=== PATIENT | male | born 1985 | race African-American/Black ===

== ENCOUNTER 2019-07-21 08:02 | Emergency (ER) | payer SELFPAY ==
[~2019-07-21] VITALS: Ht 172.7 cm; Wt 78.0 kg
[2019-07-21] MEDS ORDERED: ROCURONIUM BROMIDE 50 MG/5 ML IV ONE (08:08)
[2019-07-21] MEDS ORDERED: ETOMIDATE 2 MG/ML VIAL IV ONE ×2 (08:08→10:00)
--- NOTE | 2019-07-21 08:15 | NUR ---
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 PATIENT C/O HEADACHE, NOTED DIAPHORETIC, NOTED W VOMITING. AWAITING MD DIGGS. SEIZURE PRECAUTION APPLIED.
--- NOTE | 2019-07-21 08:20 | NUR ---
DR ZHENG AT BEDSIDE
--- NOTE | 2019-07-21 08:20 | NUR ---
PATIENT AOX 3, NOTED W L SIDED WEAKNESS. DR ZHENG AWARE
[2019-07-21] MEDS ORDERED: ONDANSETRON HCL/PF 4 MG/2 ML VIAL ONE ×2 (08:30→09:29)
[2019-07-21] MEDS ORDERED: LEVETIRACETAM (500MG) 500 MG in IV NS 0.9% 100 ML IV ONE ×2 (08:30→09:38)
[2019-07-21] MEDS ORDERED: ONDANSETRON HCL/PF 4 MG/2 ML VIAL IVP ONE (08:30)
[2019-07-21] MEDS ORDERED: IV NS 0.9% 1,000 ML BAG IV ONE ×2 (08:30→09:00)
[2019-07-21 08:44] LABS: BASOPHILS % (AUTO) 0.3 % (0.0-2.0); HEMATOCRIT 44 % (39-51); HEMOGLOBIN 14.6 g/dL (13.5-17.5); LYMPHOCYTES # (AUTO) 4.5 /CMM (0.8-4.8); LYMPHOCYTES % (AUTO) 45.2 % (20.0-44.0); MEAN CORPUSCULAR HGB CONC 34 g/dl (31.0-36.0); MEAN CORPUSCULAR VOLUME 84 fL (80-96); MONOCYTES # (AUTO) 1.1 /CMM (0.1-1.30); MONOCYTES % (AUTO) 11.4 % (2.0-12.0); NEUTROPHILS # (AUTO) 4.2 /CMM (1.8-8.9); NEUTROPHILS % (AUTO) 42.1 % (43.0-81.0); PLATELET COUNT (AUTO) 242 /CMM (150-450); RED BLOOD CELL COUNT(AUTO) 5.16 MIL/uL (4.5-6.0)
[2019-07-21 08:48] LABS: PHENYTOIN (DILANTIN) 4.2 ug/ml (10.0-20.0)
--- NOTE | 2019-07-21 08:48 | NUR ---
CONTINUOUS IMPROVEMENT FACILITATOR AT BEDSIDE
[2019-07-21 08:49] LABS: ALANINE AMINOTRANSFERASE 60 U/L (12-78); ALBUMIN 3.8 g/dL (3.4-5.0); ALCOHOL, BLOOD < 3 mg/dL (0-0); ALKALINE PHOSPHATASE 101 U/L (46-116); ASPARTATE AMINOTRANSFERASE 39 U/L (15-37); BILIRUBIN,DIRECT 0.1 mg/dL (0.0-0.2); BILIRUBIN,TOTAL 0.3 mg/dL (0.2-1.0); CALCIUM, SERUM 8.9 mg/dL (8.5-10.1); CARBON DIOXIDE 23 mmol/L (21-32); CHLORIDE 105 mmol/L (98-107); GLUCOSE 202 mg/dL (74-106); POTASSIUM 3.1 mmol/L (3.5-5.1); SODIUM SERUM 141 mmol/L (136-145); TOTAL PROTEIN, SERUM 7.7 g/dL (6.4-8.2); UREA NITROGEN, BLOOD 12 mg/dL (7-18)
[2019-07-21] MEDS ORDERED: PHEN100C4 PO (08:55)
[2019-07-21] MEDS ORDERED: POTASSIUM CHLORIDE 20 MEQ TAB.PRT.SR PO ONE ×2 (09:00→09:06)
[2019-07-21] MEDS ORDERED: phenytoin SODIUM IV 1,000 MG in IV NS 0.9% 100 ML IV ONE (09:00)
[2019-07-21] MEDS ORDERED: ACETAMINOPHEN ES 500 MG TABLET PO ONE (09:00)
[2019-07-21] MEDS ORDERED: ACETAMINOPHEN ES 500 MG TABLET ONE (09:06)
[2019-07-21] MEDS ORDERED: LEVETIRACETAM (500MG) 500 MG in IV NS 0.9% 100 ML IV SCH ×4 (09:30)
--- NOTE | 2019-07-21 09:30 | NUR ---
DR ZHENG, RT, RN AND TECH AT BEDSIDE FOR INTUBATION. ZOFRAN 4MG IVP, ROCURONIUM 80MG IVP AND ETOMIDATE 20MG IVP GIVEN VERBALLY ORDERED BY MD. ET SIZE: 7.0 24 AT THE LIP +BILATERAL CHEST RISE AND FALL +BILATERAL BREATH SOUNDS +COLOR CHANGE VENT SETTINGS: AC 12 PEEP 5 O2 40% VT 550ML
--- NOTE | 2019-07-21 09:30 | NUR ---
SPOKE WITH DWAYNE FROM [facility] FAX[facility]. Addendum: 07/21/19 at 0959 by [facility].
[2019-07-21] MEDS ORDERED: PROPOFOL 100 ML ONE (09:33)
[2019-07-21] MEDS ORDERED: MANNITOL 20% IV ONE (09:41)
[2019-07-21] MEDS ORDERED: PROPOFOL 100 ML IV ONE (09:48)
[2019-07-21] MEDS ORDERED: MANNITOL 0 ML IV ONE (09:51)
--- NOTE | 2019-07-21 09:51 | NUR ---
DWAYNE FROM [facility] CALLED BACK. ACCEPTED UNDER THE CARE OF DR. VEE. [phone] EXT. [phone] GIVE REPORT TO [facility] ETA 20-25MIN.
[2019-07-21] MEDS ORDERED: ONDANSETRON HCL/PF - ER 4 MG/2 ML VIAL IV ONE (10:00)
[2019-07-21] MEDS ORDERED: IV MANNITOL 20% 250 ML IV PRN (10:00)
[2019-07-21] MEDS ORDERED: ROCURONIUM BROMIDE 100 MG/10 ML VIAL IV ONE (10:00)
[2019-07-21] MEDS ORDERED: hydrALAZINE HCL IV 20 MG VIAL ONE (10:06)
--- NOTE | 2019-07-21 10:18 | NUR ---
REPORT GIVEN TO DENNISE NOYOLA [facility] OR [facility]IT
[2019-07-21 10:26] VITALS: BP 149/78
--- NOTE | 2019-07-21 10:29 | NUR ---
[facility] UN[facility] 134 AT BED SIDE, MADE AWARE PATIENT GOING TO BE DIRECT ADMIT TO OPERATING ROOM, PER [facility].
[2019-07-21] MEDS ORDERED: hydrALAZINE HCL IV 20 MG VIAL IV ONE (10:30)
--- NOTE | 2019-07-21 10:30 | NUR ---
PATIENT TRANSFERRED TO [facility]IA [facility], W AND Gorge LARSEN RN.
== END 2019-07-21 10:30 | disposition short-term general hospital (02) ==
LOC: EDBD 08:07 → ER 08:07
DX: S00.03XA Contusion of scalp, initial encounter (principal); S06.4X0A Epidural hemorrhage without loss of consciousness, initial encounter; G40.909 Epilepsy, unspecified, not intractable, without status epilepticus; I10 Essential (primary) hypertension; E87.6 Hypokalemia; I51.7 Cardiomegaly; Z60.2 Problems related to living alone; Z79.899 Other long term (current) drug therapy; X58.XXXA Exposure to other specified factors, initial encounter; Y93.89 Activity, other specified; Y92.89 Other specified places as the place of occurrence of the external cause; Y99.8 Other external cause status
CPT/HCPCS: 31500; 36415; 70450; 71045; 72125; 80048; 80076; 80185; 80305; 80307; 85025; 85730; 86850; 93005; 96365; 96366; 96367; 96368; 96375; 96376; 99291; J0360; J1165; J1953 ×2; J2150; J2405 ×2; J3490 ×2; J7030 ×6; G0480

== ENCOUNTER 2021-07-01 19:26 | Emergency (ER) | payer SELFPAY ==
[~2021-07-01] VITALS: Ht 172.7 cm; Wt 101.2 kg
[~2021-07-01 19:26] MED LIST: PHEN100C4 PO
--- NOTE | 2021-07-01 19:30 | NUR ---
PATIENT BIBRA [address] FROM BUS STOP C/O SEIZURE. HX OF SEIZURE. PATIENT IS A/O X 4 RR EVEN AND UNLABORED, NO SOB NOTED. PATIENT CONNECTED TO MONITORS. SEIZURE PRECAUTION IN PLACE. SITTER AT BEDSIDE.
[2021-07-01] MEDS ORDERED: LEVETIRACETAM (500MG) 500 MG/5 ML VIAL IV ONE (19:50)
[2021-07-01 19:52] LABS: BASOPHILS # (AUTO) 0.1 K/uL (0.0-0.2); BASOPHILS % (AUTO) 0.5 % (0.0-2.0); EOSINOPHILS % (AUTO) 1.1 % (0.0-6.0); HEMATOCRIT 44 % (39-51); HEMOGLOBIN 13.8 g/dL (13.5-17.5); LYMPHOCYTES # (AUTO) 6.5 K/uL (0.8-4.8); LYMPHOCYTES % (AUTO) 49.4 % (20.0-44.0); MEAN CORPUSCULAR HGB CONC 31 g/dl (31.0-36.0); MEAN CORPUSCULAR VOLUME 80 fL (80-96); MONOCYTES # (AUTO) 1.5 K/uL (0.1-1.30); MONOCYTES % (AUTO) 11.6 % (2.0-12.0); NEUTROPHILS # (AUTO) 4.9 K/uL (1.8-8.9); NEUTROPHILS % (AUTO) 37.4 % (43.0-81.0); PLATELET COUNT (AUTO) 349 K/uL (150-450); RED BLOOD CELL COUNT(AUTO) 5.53 MIL/uL (4.5-6.0); WHITE BLOOD COUNT (AUTO) 13.2 K/uL (4.3-11.0)
[2021-07-01] MEDS ORDERED: LEVETIRACETAM (500MG) 500 MG in IV NS 0.9% 100 ML IV ONE (20:00)
[2021-07-01 20:07] LABS: CALCIUM, SERUM 8.9 mg/dL (8.5-10.1); CREATININE 1.3 mg/dL (0.6-1.3); POTASSIUM 3.3 mmol/L (3.5-5.1)
[2021-07-01 20:12] LABS: ALBUMIN 3.9 g/dL (3.4-5.0); BILIRUBIN,TOTAL 0.1 mg/dL (0.2-1.0); TOTAL PROTEIN, SERUM 8.7 g/dL (6.4-8.2)
[2021-07-01 21:36] VITALS: BP 156/92
[2021-07-01] MEDS ORDERED: LEVE500T9 PO (21:36)
--- NOTE | 2021-07-01 21:37 | NUR ---
Patient discharged to home in stable condition. Written and verbal after care instructions given. Patient verbalizes understanding of instruction.IV removed. Catheter intact and site benign. Pressure and 4x4 applied to site. No bleeding noted. Pt ambulatory with a steady gait
== END 2021-07-01 21:39 | disposition home or self-care (01) ==
LOC: ER 19:29
DX: G40.909 Epilepsy, unspecified, not intractable, without status epilepticus (principal); I10 Essential (primary) hypertension; Z60.2 Problems related to living alone; Z79.899 Other long term (current) drug therapy
CPT/HCPCS: 36415; 80048; 80076; 85025; 96365; 99284; J1953 ×2; J7030